=== PATIENT | female | born 1970 | race Caucasian/White ===

== ENCOUNTER 2017-11-18 16:08 | Emergency (ER) | payer BC ==
[~2017-11-18] VITALS: Ht 167.6 cm; Wt 102.1 kg
[~2017-11-18 16:08] MED LIST: OXCA300T4 PO
[2017-11-18 16:19] VITALS: BP_SYST 131
[2017-11-18] MEDS ORDERED: IBUPROFEN 800 MG TABLET PO ONE (17:00)
[2017-11-18 18:05] VITALS: BP_SYST 134
== END 2017-11-18 18:07 | disposition home or self-care (01) ==
LOC: SED 16:08
DX: S83.91XA Sprain of unspecified site of right knee, initial encounter (principal); W19.XXXA Unspecified fall, initial encounter; Y93.89 Activity, other specified; Y92.89 Other specified places as the place of occurrence of the external cause; Y99.8 Other external cause status; I10 Essential (primary) hypertension; Z90.710 Acquired absence of both cervix and uterus
CPT/HCPCS: 99284

== ENCOUNTER 2017-12-15 13:44 | Inpatient (IN) | payer BC ==
[~2017-12-15] VITALS: Ht 167.6 cm; Wt 99.8 kg
[~2017-12-15 13:44] MED LIST changes: +BUPIVACAINE /EPINEPHRINE/PF 0.25% 30 ML VIAL INJ ONE; +BUPIVACAINE LIPOSOME/PF 266 MG/20 ML VIAL INFIL ONE; +GLYCOPYRROLATE 0.2 MG/ML VIAL IJ ONE; +KETOROLAC TROMETHAMINE 30 MG VIAL IVP ONE; +LR 1,000 ML IV.SOLN IV ONE; +MIDAZOLAM HCL 5 MG/5 ML VIAL IVP ONE; +NEOSTIGMINE METHYLSULFATE 1 MG/ML, 10 ML VIAL IVP ONE; +NS 1000 ML IV.SOLN IV ONE; +NS IRRIG SOLN 1000 ML IR ONE; +ONDANSETRON HCL 4 MG/2 ML VIAL IVP ONE; +PROPOFOL 200MG/ 20ML VIAL (DIPRIVAN) IV ONE; +SEVOFLURANE 15 MIN GAS INH ONE
[2017-12-15 14:09] VITALS: BP_SYST 132
[2017-12-15] MEDS ORDERED: MORPHINE 4 MG/ML INJ. SYRINGE IVP ONE (14:45)
[2017-12-15] MEDS ORDERED: NACL 0.9% 1,000 ML IV ONE (14:45)
[2017-12-15 15:15] LABS: BILIRUBIN,URINE NEGATIVE (NEGATIVE); BLOOD, URINE NEGATIVE (NEGATIVE); CLARITY/URINE CLEAR (CLEAR); COLOR,URINE YELLOW (YELLOW); GLUCOSE,URINE NEGATIVE (NEGATIVE); KETONES,URINE NEGATIVE (NEGATIVE); LEUKOCYTE ESTERASE ,URINE NEGATIVE (NEGATIVE); NITRITE, URINE NEGATIVE (NEGATIVE); PH,URINE 5.5 (5.0-8.0); PROTEIN URINE NEGATIVE (NEGATIVE); UROBILINOGEN,URINE 0.2 (0.2-1.0)
[2017-12-15 15:40] LABS: BASOPHILS % (AUTO) 0.8 % (0.0-2.0); EOSINOPHILS # (AUTO) 0.1 K/uL (0.0-0.4); EOSINOPHILS % (AUTO) 2.5 % (0.0-4.0); HEMATOCRIT 38.2 % (36-48); HEMOGLOBIN 12.8 g/dL (12.0-16.0); LYMPHOCYTES # (AUTO) 1.7 K/uL (1.0-5.5); LYMPHOCYTES % (AUTO) 32.9 % (20.5-51.5); MEAN CORPUSCULAR HEMOGLOBIN 30 pg (27-31); MEAN CORPUSCULAR HGB CONC 34 % (32-36); MEAN CORPUSCULAR VOLUME 89 fL (79.0-98.0); MONOCYTES # (AUTO) 0.4 K/uL (0.0-1.0); MONOCYTES % (AUTO) 7.2 % (1.7-9.3); NEUTROPHILS # (AUTO) 2.9 K/uL (1.8-7.7); NEUTROPHILS % (AUTO) 56.6 % (40.0-70.0); PLATELET COUNT (AUTO) 254 K/uL (130-430); RED BLOOD CELL COUNT(AUTO) 4.32 MIL/uL (4.2-6.2); RED CELL DISTRIBUTION WIDTH 12.8 % (9.0-15.0); WHITE BLOOD COUNT (AUTO) 5.1 K/uL (4.8-10.8)
[2017-12-15 15:45] LABS: CALCIUM 9.8 mg/dL (8.4-11.0); CREATININE 0.93 mg/dL (0.55-1.30); POTASSIUM 4.3 mmol/L (3.5-5.1)
[2017-12-15 15:49] LABS: TOTAL BILIRUBIN 0.4 mg/dL (0.0-1.0)
[2017-12-15] MEDS ORDERED: LETR2.5T6 PO (17:14)
[2017-12-15] MEDS ORDERED: CEPH500C2 PO (17:14)
[2017-12-15] MEDS ORDERED: BACL20 PO (17:14)
[2017-12-15 17:48] VITALS: BP_SYST 134
[2017-12-15 19:30] VITALS: BP_SYST 114
[2017-12-15 20:00] VITALS: BP_SYST 114
[2017-12-15] MEDS: MORPHINE 4 MG/ML INJ. SYRINGE IVP PRN (21:38)
[2017-12-15] MEDS: ONDANSETRON HCL 4 MG/2 ML VIAL IVP PRN (21:44)
[2017-12-15] MEDS ORDERED: FAMOTIDINE PF 20 MG/2 ML VIAL IVP SCH (21:45)
[2017-12-15] MEDS ORDERED: ACETAMINOPHEN 325 MG TABLET PO PRN (21:45)
[2017-12-15] MEDS ORDERED: DIPHENHYDRAMINE INJ 50 MG/ML VIAL IVP PRN ×2 (21:45→22:00)
[2017-12-15] MEDS ORDERED: MAG-AL HYDROX/SIMETH 30 ML UDC PO PRN (22:15)
[2017-12-16 00:13] VITALS: BP_SYST 128
[2017-12-16] MEDS ORDERED: AMPICILLIN SODIUM/SULBACTAM NA 1.5 GM VIAL ONE (00:15)
[2017-12-16] MEDS: NACL 0.9% 1,000 ML IV SCH ×2 (00:33→18:15)
[2017-12-16] MEDS: AMPICILLIN SODIUM/SULBACTAM NA 1.5 GM in NS 50 ML IV SCH ×5 (00:37→23:28)
[2017-12-16] MEDS: TEMAZEPAM 15 MG CAPSULE PO PRN ×2 (00:42→23:29)
[2017-12-16] MEDS: KETOROLAC TROMETHAMINE 15 MG VIAL IVP PRN ×2 (05:49→11:19)
[2017-12-16] MEDS: ONDANSETRON HCL 4 MG/2 ML VIAL IVP PRN ×2 (05:52→20:28)
[2017-12-16 06:35] LABS: BASOPHILS % (AUTO) 0.7 % (0.0-2.0); EOSINOPHILS # (AUTO) 0.2 K/uL (0.0-0.4); EOSINOPHILS % (AUTO) 3.3 % (0.0-4.0); HEMATOCRIT 37.5 % (36-48); HEMOGLOBIN 12.6 g/dL (12.0-16.0); LYMPHOCYTES # (AUTO) 1.9 K/uL (1.0-5.5); LYMPHOCYTES % (AUTO) 41.9 % (20.5-51.5); MEAN CORPUSCULAR HEMOGLOBIN 30 pg (27-31); MEAN CORPUSCULAR HGB CONC 34 % (32-36); MEAN CORPUSCULAR VOLUME 89 fL (79.0-98.0); MONOCYTES # (AUTO) 0.3 K/uL (0.0-1.0); MONOCYTES % (AUTO) 7.3 % (1.7-9.3); NEUTROPHILS # (AUTO) 2.2 K/uL (1.8-7.7); NEUTROPHILS % (AUTO) 46.8 % (40.0-70.0); PLATELET COUNT (AUTO) 218 K/uL (130-430); RED CELL DISTRIBUTION WIDTH 12.7 % (9.0-15.0); WHITE BLOOD COUNT (AUTO) 4.6 K/uL (4.8-10.8)
[2017-12-16 06:51] LABS: PROTHROMBIN TIME 9.7 SECS (9.5-12.5)
[2017-12-16 07:02] LABS: ALBUMIN 3.4 g/dL (3.4-4.8); CALCIUM 9.3 mg/dL (8.4-11.0); CREATININE 0.99 mg/dL (0.55-1.30); POTASSIUM 4.1 mmol/L (3.5-5.1); THYROID STIMULATING HORMONE 2.54 uIu/mL (0.34-4.82); TOTAL BILIRUBIN 0.5 mg/dL (0.0-1.0)
[2017-12-16 08:06] VITALS: BP_SYST 105
[2017-12-16] MEDS: FAMOTIDINE PF 20 MG/2 ML VIAL IVP SCH ×2 (08:32→20:28)
[2017-12-16] MEDS: CLOTRIMAZOLE/BETAMET DIPROP 15 GM TUBE TP SCH ×2 (08:32→20:28)
[2017-12-16] MEDS: LETROZOLE 2.5 MG TABLET (FEMARA) PO SCH (09:00)
[2017-12-16 12:30] VITALS: BP_SYST 112
[2017-12-16 15:23] VITALS: BP_SYST 107
[2017-12-16 19:20] VITALS: BP_SYST 107
[2017-12-16] MEDS: MORPHINE 4 MG/ML INJ. SYRINGE IVP PRN (20:29)
[2017-12-17 00:28] VITALS: BP_SYST 100
[2017-12-17] MEDS: MORPHINE 4 MG/ML INJ. SYRINGE IVP PRN (04:13)
[2017-12-17] MEDS: AMPICILLIN SODIUM/SULBACTAM NA 1.5 GM in NS 50 ML IV SCH ×4 (05:48→23:29)
[2017-12-17 06:53] LABS: ALANINE AMINOTRANSFERASE 256 U/L (12-78); ALBUMIN 3.5 g/dL (3.4-4.8); ASPARTATE AMINOTRANSFERASE 60 U/L (10-37); CALCIUM 9.5 mg/dL (8.4-11.0); CHLORIDE 107 mmol/L (98-107); GLUCOSE 89 mg/dL (70-99); POTASSIUM 4.5 mmol/L (3.5-5.1); SODIUM SERUM 139 mmol/L (136-145); TOTAL BILIRUBIN 0.5 mg/dL (0.0-1.0); UREA NITROGEN, BLOOD 10 mg/dL (8-21)
[2017-12-17 07:01] LABS: BASOPHILS % (AUTO) 0.2 % (0.0-2.0); EOSINOPHILS # (AUTO) 0.2 K/uL (0.0-0.4); EOSINOPHILS % (AUTO) 3.7 % (0.0-4.0); HEMATOCRIT 36.7 % (36-48); HEMOGLOBIN 12.4 g/dL (12.0-16.0); LYMPHOCYTES # (AUTO) 1.5 K/uL (1.0-5.5); LYMPHOCYTES % (AUTO) 34.6 % (20.5-51.5); MEAN CORPUSCULAR HEMOGLOBIN 31 pg (27-31); MEAN CORPUSCULAR HGB CONC 34 % (32-36); MEAN CORPUSCULAR VOLUME 91 fL (79.0-98.0); MONOCYTES # (AUTO) 0.3 K/uL (0.0-1.0); MONOCYTES % (AUTO) 7.6 % (1.7-9.3); NEUTROPHILS # (AUTO) 2.3 K/uL (1.8-7.7); NEUTROPHILS % (AUTO) 53.9 % (40.0-70.0); PLATELET COUNT (AUTO) 218 K/uL (130-430); RED BLOOD CELL COUNT(AUTO) 4.04 MIL/uL (4.2-6.2); WHITE BLOOD COUNT (AUTO) 4.3 K/uL (4.8-10.8)
[2017-12-17 07:06] LABS: ANION GAP < 3 (5-15); GFR AFRICAN AMERICAN 100 mL/min (>90)
[2017-12-17] MEDS: KETOROLAC TROMETHAMINE 15 MG VIAL IVP PRN (07:57)
[2017-12-17 08:00] VITALS: BP_SYST 125
[2017-12-17] MEDS: LETROZOLE 2.5 MG TABLET (FEMARA) PO SCH (08:46)
[2017-12-17] MEDS: CLOTRIMAZOLE/BETAMET DIPROP 15 GM TUBE TP SCH ×2 (08:46→20:28)
[2017-12-17] MEDS: FAMOTIDINE PF 20 MG/2 ML VIAL IVP SCH ×2 (08:46→20:28)
[2017-12-17] MEDS ORDERED: BUPIVACAINE LIPOSOME/PF 266 MG/20 ML VIAL INFIL ONE (09:38)
[2017-12-17] MEDS ORDERED: IOHEXOL 100 ML IV ONE (09:58)
[2017-12-17] MEDS ORDERED: fentaNYL CITRATE/PF 100 MCG/2 ML AMP IVP PRN ×2 (10:15)
[2017-12-17] MEDS ORDERED: ONDANSETRON HCL 4 MG/2 ML VIAL IVP PRN (10:15)
[2017-12-17] MEDS ORDERED: KETOROLAC TROMETHAMINE 30 MG VIAL IVP PRN (10:15)
[2017-12-17] MEDS ORDERED: HYDROmorphone 1 MG INJ. 1 MG/ML AMPUL IVP PRN (11:00)
[2017-12-17] MEDS ORDERED: ACETAMINOPHEN 325 MG TABLET PO PRN (11:00)
[2017-12-17 11:06] LABS: HEPATITIS A AB, IgM Negative (Negative); HEPATITIS B CORE AB, IgM Negative (Negative); HEPATITIS B SURFACE AG Negative (Negative)
[2017-12-17] MEDS ORDERED: fentaNYL CITRATE/PF 100 MCG/2 ML AMP ONE (11:33)
[2017-12-17] MEDS: NACL 0.9% 1,000 ML IV SCH ×2 (12:10→20:28)
[2017-12-17 12:45] VITALS: BP_SYST 119
[2017-12-17 13:00] VITALS: BP_SYST 147
[2017-12-17] MEDS: HYDROmorphone 1 MG INJ. 1 MG/ML AMPUL IVP PRN (13:13)
[2017-12-17] MEDS: ONDANSETRON HCL 4 MG/2 ML VIAL IVP PRN ×2 (13:42→20:28)
[2017-12-17] MEDS: METOCLOPRAMIDE HCL 10 MG/2 ML VIAL IVP PRN ×2 (16:07→16:10)
[2017-12-17 16:45] VITALS: BP_SYST 119
[2017-12-17] MEDS: HYDROcodone/ACETAMIN 5-325 MG TAB (NORCO/ VICODIN) PO PRN (20:29)
[2017-12-17 20:47] VITALS: BP_SYST 135
[2017-12-18 00:13] VITALS: BP_SYST 124
[2017-12-18] MEDS: HYDROcodone/ACETAMIN 5-325 MG TAB (NORCO/ VICODIN) PO PRN ×3 (02:56→23:57)
[2017-12-18] MEDS: HYDROmorphone 1 MG INJ. 1 MG/ML AMPUL IVP PRN ×4 (05:06→19:41)
[2017-12-18] MEDS: AMPICILLIN SODIUM/SULBACTAM NA 1.5 GM in NS 50 ML IV SCH ×4 (05:06→23:58)
[2017-12-18 06:47] LABS: BASOPHILS % (AUTO) 0.5 % (0.0-2.0); EOSINOPHILS # (AUTO) 0.2 K/uL (0.0-0.4); EOSINOPHILS % (AUTO) 2.9 % (0.0-4.0); HEMATOCRIT 34.8 % (36-48); HEMOGLOBIN 11.4 g/dL (12.0-16.0); LYMPHOCYTES # (AUTO) 1.5 K/uL (1.0-5.5); LYMPHOCYTES % (AUTO) 26.6 % (20.5-51.5); MEAN CORPUSCULAR HEMOGLOBIN 30 pg (27-31); MEAN CORPUSCULAR HGB CONC 33 % (32-36); MEAN CORPUSCULAR VOLUME 91 fL (79.0-98.0); MONOCYTES # (AUTO) 0.4 K/uL (0.0-1.0); MONOCYTES % (AUTO) 7.7 % (1.7-9.3); NEUTROPHILS # (AUTO) 3.4 K/uL (1.8-7.7); NEUTROPHILS % (AUTO) 62.3 % (40.0-70.0); PLATELET COUNT (AUTO) 203 K/uL (130-430); RED BLOOD CELL COUNT(AUTO) 3.84 MIL/uL (4.2-6.2); RED CELL DISTRIBUTION WIDTH 11.9 % (9.0-15.0); WHITE BLOOD COUNT (AUTO) 5.5 K/uL (4.8-10.8)
[2017-12-18] MEDS: NACL 0.9% 1,000 ML IV SCH (06:52)
[2017-12-18 06:57] LABS: ALBUMIN 3.1 g/dL (3.4-4.8); CALCIUM 8.8 mg/dL (8.4-11.0); CREATININE 0.64 mg/dL (0.55-1.30); POTASSIUM 3.7 mmol/L (3.5-5.1); TOTAL BILIRUBIN 0.6 mg/dL (0.0-1.0)
[2017-12-18 08:01] VITALS: BP_SYST 138
[2017-12-18] MEDS: LETROZOLE 2.5 MG TABLET (FEMARA) PO SCH (08:45)
[2017-12-18] MEDS: CLOTRIMAZOLE/BETAMET DIPROP 15 GM TUBE TP SCH ×2 (08:46→20:47)
[2017-12-18] MEDS: FAMOTIDINE PF 20 MG/2 ML VIAL IVP SCH ×2 (08:46→20:47)
[2017-12-18 12:39] VITALS: BP_SYST 108
[2017-12-18 15:04] VITALS: BP_SYST 143
[2017-12-18] MEDS ORDERED: POLYETHYLENE GLYCOL 3350, 17 GM/ POWD.PACK PO ONE (17:00)
[2017-12-18] MEDS ORDERED: BISACODYL 5 MG TABLET.DR (DULCOLAX) PO ONE ×2 (18:15)
[2017-12-18 20:20] VITALS: BP_SYST 148
[2017-12-18] MEDS: DOCUSATE SODIUM 100 MG CAPSULE PO SCH (20:53)
[2017-12-18] MEDS: ONDANSETRON HCL 4 MG/2 ML VIAL IVP PRN (22:28)
[2017-12-19 01:00] VITALS: BP_SYST 127
[2017-12-19] MEDS: AMPICILLIN SODIUM/SULBACTAM NA 1.5 GM in NS 50 ML IV SCH ×2 (05:45→12:14)
[2017-12-19] MEDS: HYDROcodone/ACETAMIN 5-325 MG TAB (NORCO/ VICODIN) PO PRN (05:49)
[2017-12-19 08:00] VITALS: BP_SYST 124
[2017-12-19] MEDS: FAMOTIDINE PF 20 MG/2 ML VIAL IVP SCH (08:21)
[2017-12-19] MEDS: DOCUSATE SODIUM 100 MG CAPSULE PO SCH (08:21)
[2017-12-19] MEDS: LETROZOLE 2.5 MG TABLET (FEMARA) PO SCH (08:21)
[2017-12-19] MEDS: CLOTRIMAZOLE/BETAMET DIPROP 15 GM TUBE TP SCH (08:22)
[2017-12-19 08:23] LABS: BASOPHILS # (AUTO) 0.1 K/uL (0.0-0.2); EOSINOPHILS # (AUTO) 0.2 K/uL (0.0-0.4); EOSINOPHILS % (AUTO) 4.1 % (0.0-4.0); HEMATOCRIT 35.7 % (36-48); HEMOGLOBIN 11.8 g/dL (12.0-16.0); LYMPHOCYTES # (AUTO) 1.7 K/uL (1.0-5.5); LYMPHOCYTES % (AUTO) 33.4 % (20.5-51.5); MEAN CORPUSCULAR HEMOGLOBIN 30 pg (27-31); MEAN CORPUSCULAR HGB CONC 33 % (32-36); MEAN CORPUSCULAR VOLUME 91 fL (79.0-98.0); MONOCYTES # (AUTO) 0.4 K/uL (0.0-1.0); MONOCYTES % (AUTO) 7.4 % (1.7-9.3); NEUTROPHILS # (AUTO) 2.8 K/uL (1.8-7.7); NEUTROPHILS % (AUTO) 54.1 % (40.0-70.0); PLATELET COUNT (AUTO) 187 K/uL (130-430); RED BLOOD CELL COUNT(AUTO) 3.94 MIL/uL (4.2-6.2); RED CELL DISTRIBUTION WIDTH 11.8 % (9.0-15.0); WHITE BLOOD COUNT (AUTO) 5.2 K/uL (4.8-10.8)
[2017-12-19 08:33] LABS: ALBUMIN 3.4 g/dL (3.4-4.8); CALCIUM 9.4 mg/dL (8.4-11.0); CREATININE 0.77 mg/dL (0.55-1.30); POTASSIUM 3.7 mmol/L (3.5-5.1); TOTAL BILIRUBIN 0.5 mg/dL (0.0-1.0)
[2017-12-19 11:43] VITALS: BP_SYST 149
[2017-12-19 12:00] VITALS: BP_SYST 121
[2017-12-19] MEDS ORDERED: MAGNESIUM CITRATE 300 ML ORAL SOLUTION PO ONE (12:45)
== END 2017-12-19 14:45 | disposition home or self-care (01) | DRG 419 ==
LOC: SED 13:44 → SMU 17:17
PROVIDERS: ADMIT Internal Medicine; ATTEND Internal Medicine
PROC: BF131ZZ Fluoroscopy of Gallbladder and Bile Ducts using Low Osmolar Contrast (ICD-10-PCS; 2017-12-17)
PROC: 0FT44ZZ Resection of Gallbladder, Percutaneous Endoscopic Approach (ICD-10-PCS; principal; 2017-12-17 09:00)
DX: K80.42 Calculus of bile duct with acute cholecystitis without obstruction (principal); I10 Essential (primary) hypertension; E66.9 Obesity, unspecified; Z68.35 Body mass index [BMI] 35.0-35.9, adult; Z85.3 Personal history of malignant neoplasm of breast; Z79.899 Other long term (current) drug therapy; Z90.710 Acquired absence of both cervix and uterus
CPT/HCPCS: 36415; 71046-TC; 74300; 76700-TC; 78226; 80053; 80074; 81003; 82150-TC; 83690-TC; 84443-TC; 84703; 85025; 85610-TC; 85730-TC; 86870; 86886; 86900; 86901; 87081; 88304; 93005; 94010; 96361; 96374; 99285; A9537; C1727; C9290; J0295; J1170; J1200; J1885; J2250; J2270; J2405; J2704; J2710; J2765; J3010; J3490; J7030; J7120; Q9967

== ENCOUNTER 2019-12-10 10:21 | Day surgery (SDC) | payer BC, SELFPAY ==
[2019-12-03 11:15] LABS: BASOPHILS # (AUTO) 0.1 K/uL (0.0-0.2); BASOPHILS % (AUTO) 1.3 % (0.0-2.0); EOSINOPHILS # (AUTO) 0.1 K/uL (0.0-0.4); EOSINOPHILS % (AUTO) 2.8 % (0.0-4.0); HEMATOCRIT 36.1 % (36-48); HEMOGLOBIN 12.1 g/dL (12.0-16.0); LYMPHOCYTES # (AUTO) 1.6 K/uL (1.0-5.5); LYMPHOCYTES % (AUTO) 35.7 % (20.5-51.5); MEAN CORPUSCULAR HEMOGLOBIN 30 pg (27-31); MEAN CORPUSCULAR HGB CONC 34 % (32-36); MEAN CORPUSCULAR VOLUME 89 fL (79.0-98.0); MONOCYTES # (AUTO) 0.3 K/uL (0.0-1.0); MONOCYTES % (AUTO) 7.1 % (1.7-9.3); NEUTROPHILS # (AUTO) 2.4 K/uL (1.8-7.7); NEUTROPHILS % (AUTO) 53.1 % (40.0-70.0); PLATELET COUNT (AUTO) 256 K/uL (130-430); RED BLOOD CELL COUNT(AUTO) 4.06 MIL/uL (4.2-6.2); RED CELL DISTRIBUTION WIDTH 12.8 % (9.0-15.0); WHITE BLOOD COUNT (AUTO) 4.4 K/uL (4.8-10.8)
[2019-12-03 11:25] LABS: BILIRUBIN,URINE NEGATIVE (NEGATIVE); BLOOD, URINE NEGATIVE (NEGATIVE); CLARITY/URINE CLEAR (CLEAR); COLOR,URINE YELLOW (YELLOW); GLUCOSE,URINE NEGATIVE (NEGATIVE); KETONES,URINE NEGATIVE (NEGATIVE); LEUKOCYTE ESTERASE ,URINE NEGATIVE (NEGATIVE); NITRITE, URINE NEGATIVE (NEGATIVE); PROTEIN URINE NEGATIVE (NEGATIVE); UROBILINOGEN,URINE 0.2 (0.2-1.0)
[2019-12-03 11:27] LABS: HCG,QUAL RESULT NEGATIVE (NEGATIVE)
[2019-12-03 11:40] LABS: PROTHROMBIN TIME 9.7 SECS (9.5-12.5)
[2019-12-03 11:45] LABS: CALCIUM 9.5 mg/dL (8.4-11.0); CREATININE 0.67 mg/dL (0.55-1.30); POTASSIUM 4.3 mmol/L (3.5-5.1)
[~2019-12-10] VITALS: Ht 167.6 cm; Wt 102.1 kg
[~2019-12-10 10:21] MED LIST changes: +BACL20 PO; -BUPIVACAINE /EPINEPHRINE/PF 0.25% 30 ML VIAL INJ ONE; -BUPIVACAINE LIPOSOME/PF 266 MG/20 ML VIAL INFIL ONE; +CEPH500C2 PO; -GLYCOPYRROLATE 0.2 MG/ML VIAL IJ ONE; -KETOROLAC TROMETHAMINE 30 MG VIAL IVP ONE; +LETR2.5T6 PO; -LR 1,000 ML IV.SOLN IV ONE; -MIDAZOLAM HCL 5 MG/5 ML VIAL IVP ONE; -NEOSTIGMINE METHYLSULFATE 1 MG/ML, 10 ML VIAL IVP ONE; -NS 1000 ML IV.SOLN IV ONE; -NS IRRIG SOLN 1000 ML IR ONE; -ONDANSETRON HCL 4 MG/2 ML VIAL IVP ONE; -OXCA300T4 PO; -PROPOFOL 200MG/ 20ML VIAL (DIPRIVAN) IV ONE; -SEVOFLURANE 15 MIN GAS INH ONE
[2019-12-10] MEDS ORDERED: BUPIVACAINE /EPINEPHRINE/PF 0.25% 30 ML VIAL INJ ONE (11:51)
[2019-12-10] MEDS ORDERED: PROPOFOL 200MG/ 20ML VIAL (DIPRIVAN) IV ONE (11:51)
[2019-12-10] MEDS ORDERED: ROCURONIUM BROMIDE 10 MG/ML (ZEMURON) IV ONE (11:51)
[2019-12-10] MEDS ORDERED: DEXAMETHASONE SOD PHOSPHATE 4 MG/ML VIAL IVP ONE (11:51)
[2019-12-10] MEDS ORDERED: SUCCINYLCHOLINE CHLORIDE 20 MG/ML(QUELICIN) IVP ONE (11:51)
[2019-12-10] MEDS ORDERED: NS IRRIG SOLN 5000 ML IR ONE (11:51)
[2019-12-10] MEDS ORDERED: NEOSTIGMINE METHYLSULFATE 1 MG/ML, 10 ML VIAL IVP ONE (11:51)
[2019-12-10] MEDS ORDERED: GLYCOPYRROLATE 0.2 MG/ML VIAL IJ ONE (11:51)
[2019-12-10] MEDS ORDERED: NS IRRIG SOLN 1000 ML IR ONE (11:51)
[2019-12-10] MEDS ORDERED: METOCLOPRAMIDE HCL 10 MG/2 ML VIAL IVP ONE (11:51)
[2019-12-10] MEDS ORDERED: SEVOFLURANE 15 MIN GAS INH ONE (11:51)
[2019-12-10] MEDS ORDERED: LR 1,000 ML IV SCH (12:31)
[2019-12-10] MEDS ORDERED: MORPHINE 4 MG/ML INJ. SYRINGE IVP PRN (12:45)
[2019-12-10] MEDS ORDERED: METOCLOPRAMIDE HCL 10 MG/2 ML VIAL IVP PRN (12:45)
[2019-12-10] MEDS ORDERED: HYDROmorphone 1 MG INJ. 1 MG/ML AMPUL IVP PRN (12:45)
[2019-12-10] MEDS ORDERED: ONDANSETRON HCL 4 MG/2 ML VIAL IVP PRN (12:45)
[2019-12-10] MEDS ORDERED: KETOROLAC TROMETHAMINE 30 MG VIAL IVP PRN (12:45)
[2019-12-10] MEDS ORDERED: MEPERIDINE HCL/PF 25 MG/ML DISP.SYRIN IVP PRN (12:45)
[2019-12-10] MEDS ORDERED: HYDROmorphone 1 MG INJ. 1 MG/ML AMPUL ONE (13:23)
[2019-12-10] MEDS ORDERED: HYDROcodone/ACETAMIN 10-325 MG TAB PO PRN (14:15)
[2019-12-10 14:22] VITALS: BP_SYST 142
[2019-12-10] MEDS ORDERED: HYDROcodone/ACETAMIN 10-325 MG TAB ONE (14:32)
== END 2019-12-10 15:10 | disposition home or self-care (01) ==
LOC: SDS 10:21 → SMU 10:22 → SDS 15:10
PROVIDERS: ATTEND Orthopaedic Surgery
DX: M22.42 Chondromalacia patellae, left knee (principal); Z90.710 Acquired absence of both cervix and uterus; Z98.890 Other specified postprocedural states; Z79.899 Other long term (current) drug therapy; Z20.828 Contact with and (suspected) exposure to other viral communicable diseases; Z79.01 Long term (current) use of anticoagulants
CPT/HCPCS: 29877; 36415; 71046; 80048; 81003; 84703; 85025; 85610; 85730; J0330; J1100; J1170; J2704; J2710; J2765; J3490 ×2; J7120; U0003

== ENCOUNTER 2020-01-12 20:39 | Emergency (ER) | payer BC, SELFPAY ==
[~2020-01-12] VITALS: Ht 167.6 cm; Wt 102.1 kg
[2020-01-12 20:45] VITALS: BP_SYST 152
[2020-01-13 00:40] VITALS: BP_SYST 152
== END 2020-01-13 00:40 | disposition home or self-care (01) ==
LOC: SED 20:39
DX: N64.4 Mastodynia (principal); I10 Essential (primary) hypertension; Z79.899 Other long term (current) drug therapy; Z85.3 Personal history of malignant neoplasm of breast
CPT/HCPCS: 76641; 99284

== ENCOUNTER 2021-01-29 16:16 | Emergency (ER) | payer BC, SELFPAY ==
[~2021-01-29] VITALS: Ht 167.6 cm; Wt 104.3 kg
[~2021-01-29 16:16] MED LIST changes: +CEPH-548 PO; -CEPH500C2 PO
[2021-01-29 16:26] VITALS: BP_SYST 144
--- NOTE | 2021-01-29 16:37 | NUR ---
Patient to ER bed H1 to gown for evaluation. Side rails up.
--- NOTE | 2021-01-29 16:40 | NUR ---
PT CAME IN FROM HOME C/O WORSENING LEFT SIDED SCIATICA AND LOWER BACK PAIN RADIATING TO LEFT THIGH RX LYRICA, CELEBREX, NORCO AND FLEXERIL NOT PROVIDING RELIEF. PT REPORT HX OF BULGING DISKS L1-L4, L5-S1, AND SCIATICA PAIN. SEES PAIN MANAGEMENT AT [facility]. NO RECENT INJURY OR TRAUMA. PT IS AMBULATORY, AAOX4, V/S STABLE
--- NOTE | 2021-01-29 17:18 | NUR ---
ER at bedside examining patient.
[2021-01-29] MEDS ORDERED: MORPHINE SULFATE 15 MG TABLET.ER PO ONE (17:30)
--- NOTE | 2021-01-29 18:00 | NUR ---
Pt laying down in gurney crying. Vital signs holding. Breathing is even and unlabored.
[2021-01-29] MEDS ORDERED: KETOROLAC TROMETHAMINE 30 MG VIAL IM ONE (19:00)
--- NOTE | 2021-01-29 19:07 | NUR ---
Pt laying in gurney vital signs holding. Breathing is even and unlabored.
--- NOTE | 2021-01-29 19:17 | NUR ---
Care endorsed to Yary CAMEJO.
[2021-01-29 19:30] VITALS: BP_SYST 144
--- NOTE | 2021-01-29 19:31 | NUR ---
Patient given written and verbal discharge instructions and verbalizes understanding. DR. NORI LAST MD discussed with patient the results and treatment provided. Patient in stable condition. ID arm band removed. Patient educated on pain management and to follow up with PMD. Pain Scale 0/10. Opportunity for questions provided and answered. Medication side effect fact sheet provided.
== END 2021-01-29 19:31 | disposition home or self-care (01) ==
LOC: SED 16:16
DX: G89.29 Other chronic pain (principal); M54.50 Low back pain, unspecified; I10 Essential (primary) hypertension; Z79.899 Other long term (current) drug therapy
CPT/HCPCS: 96372; 99283; J1885

== ENCOUNTER 2021-07-31 08:18 | Emergency (ER) | payer BC ==
[~2021-07-31] VITALS: Ht 167.6 cm; Wt 105.7 kg
[2021-07-31 08:20] VITALS: BP_SYST 163
--- NOTE | 2021-07-31 08:35 | NUR ---
Placed in room 4 . 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 To gown for exam. Side rails up. Report given to NELL WILLIAMSON.
--- NOTE | 2021-07-31 08:45 | NUR ---
Received patient at bedside rm 04, alert, awake and oriented. Pt presents stable vital signs.
--- NOTE | 2021-07-31 09:00 | NUR ---
Dr Gonzalez at bedside to assess.
[2021-07-31] MEDS: ONDANSETRON 4 MG ODT TAB PO ONE (10:11)
[2021-07-31] MEDS ORDERED: CYCL10TA24 PO (11:27)
--- NOTE | 2021-07-31 11:30 | NUR ---
Discharge instruction provided. Pt verbalized understanding. Denies any discomfort at this time.
[2021-07-31] MEDS ORDERED: ONDA-8 TL (11:52)
[2021-07-31 11:55] VITALS: BP_SYST 138
== END 2021-07-31 11:30 | disposition home or self-care (01) ==
LOC: SED 08:18
DX: S16.1XXA Strain of muscle, fascia and tendon at neck level, initial encounter (principal); F07.81 Postconcussional syndrome; I10 Essential (primary) hypertension; Z79.899 Other long term (current) drug therapy; W01.198A Fall on same level from slipping, tripping and stumbling with subsequent striking against other object, initial encounter; Y93.89 Activity, other specified; Y92.89 Other specified places as the place of occurrence of the external cause; Y99.8 Other external cause status
CPT/HCPCS: 70450; 76376; 99284; Q0162

== ENCOUNTER 2023-09-29 14:51 | Emergency (ER) | payer BC ==
[~2023-09-29] VITALS: Ht 162.6 cm; Wt 81.6 kg
[~2023-09-29 14:51] MED LIST changes: +CYCL10TA24 PO; +ONDA-8 TL
[2023-09-29 14:52] VITALS: BP_SYST 159; PULSE 69; RESP 18; TEMP 98.3; O2SAT 98
[2023-09-29 15:41] LABS: BILIRUBIN,URINE NEGATIVE (NEGATIVE); BLOOD, URINE NEGATIVE (NEGATIVE); CLARITY/URINE CLEAR (CLEAR); COLOR,URINE YELLOW (YELLOW); GLUCOSE,URINE NEGATIVE (NEGATIVE); KETONES,URINE NEGATIVE (NEGATIVE); LEUKOCYTE ESTERASE ,URINE NEGATIVE (NEGATIVE); NITRITE, URINE NEGATIVE (NEGATIVE); PROTEIN URINE NEGATIVE (NEGATIVE); UROBILINOGEN,URINE 0.2 (0.2-1.0)
[2023-09-29 16:11] LABS: BASOPHILS % (AUTO) 0.8 % (0.0-2.0); EOSINOPHILS # (AUTO) 0.1 K/uL (0.0-0.4); EOSINOPHILS % (AUTO) 1.5 % (0.0-4.0); HEMATOCRIT 39.1 % (36-48); HEMOGLOBIN 13.3 g/dL (12.0-16.0); LYMPHOCYTES # (AUTO) 1.3 K/uL (1.0-5.5); LYMPHOCYTES % (AUTO) 27.5 % (20.5-51.5); MEAN CORPUSCULAR HEMOGLOBIN 29 pg (27-31); MEAN CORPUSCULAR HGB CONC 34 % (32-36); MEAN CORPUSCULAR VOLUME 87 fL (79.0-98.0); MONOCYTES # (AUTO) 0.4 K/uL (0.0-1.0); MONOCYTES % (AUTO) 8.8 % (1.7-9.3); NEUTROPHILS # (AUTO) 2.9 K/uL (1.8-7.7); NEUTROPHILS % (AUTO) 61.4 % (40.0-70.0); PLATELET COUNT (AUTO) 272 K/uL (130-430); RED BLOOD CELL COUNT(AUTO) 4.51 MIL/uL (4.2-6.2); RED CELL DISTRIBUTION WIDTH 13.5 % (9.0-15.0); WHITE BLOOD COUNT (AUTO) 4.6 K/uL (4.8-10.8)
[2023-09-29 16:23] LABS: ALBUMIN 3.9 g/dL (3.4-4.8); BILIRUBIN,DIRECT 0.1 mg/dL (0.0-0.3); CALCIUM 10.4 mg/dL (8.4-11.0); CREATININE 0.85 mg/dL (0.55-1.30); TOTAL BILIRUBIN 0.5 mg/dL (0.0-1.0); TOTAL PROTEIN, SERUM 7.1 g/dL (6.4-8.3)
[2023-09-29] MEDS ORDERED: ONDA-8 TL (17:43)
[2023-09-29 18:06] VITALS: BP_SYST 159; PULSE 67; RESP 18; TEMP 98.3; O2SAT 99
== END 2023-09-29 18:05 | disposition home or self-care (01) ==
LOC: SED 14:51
DX: R11.2 Nausea with vomiting, unspecified (principal); R53.1 Weakness; R19.7 Diarrhea, unspecified; E11.9 Type 2 diabetes mellitus without complications; I10 Essential (primary) hypertension; G89.29 Other chronic pain; Z85.3 Personal history of malignant neoplasm of breast; Z90.710 Acquired absence of both cervix and uterus; Z79.899 Other long term (current) drug therapy; Z79.2 Long term (current) use of antibiotics
CPT/HCPCS: 36415; 80048; 80076; 81001; 81003; 82948; 83690; 85025; 99283

== ENCOUNTER 2023-11-06 01:54 | Emergency (ER) | payer BC ==
[~2023-11-06] VITALS: Ht 167.6 cm; Wt 90.3 kg
[2023-11-06 02:05] VITALS: BP_SYST 103; PULSE 73; RESP 16; TEMP 98.5; O2SAT 98
[2023-11-06] MEDS: DIPHTH,PERTUSS(ACELL),TET VAC 0.5 ML VIAL (Tdap) I.M. ONE (03:17)
[2023-11-06] MEDS: cefTRIAXone 1 GM IVPB PREMIX 50 ML IV ONE (03:17)
[2023-11-06] MEDS: NORMAL SALINE 5 ML DISP.SYRIN IVF SCH (03:17)
[2023-11-06] MEDS ORDERED: CEPH250C PO (03:20)
[2023-11-06 03:29] LABS: BASOPHILS # (AUTO) 0.1 K/uL (0.0-0.2); BASOPHILS % (AUTO) 1.2 % (0.0-2.0); EOSINOPHILS # (AUTO) 0.1 K/uL (0.0-0.4); EOSINOPHILS % (AUTO) 2.7 % (0.0-4.0); HEMATOCRIT 30.6 % (36-48); HEMOGLOBIN 10.2 g/dL (12.0-16.0); LYMPHOCYTES # (AUTO) 1.5 K/uL (1.0-5.5); LYMPHOCYTES % (AUTO) 27.7 % (20.5-51.5); MEAN CORPUSCULAR HEMOGLOBIN 29 pg (27-31); MEAN CORPUSCULAR HGB CONC 33 % (32-36); MEAN CORPUSCULAR VOLUME 88 fL (79.0-98.0); MONOCYTES # (AUTO) 0.5 K/uL (0.0-1.0); MONOCYTES % (AUTO) 9.1 % (1.7-9.3); NEUTROPHILS # (AUTO) 3.3 K/uL (1.8-7.7); NEUTROPHILS % (AUTO) 59.3 % (40.0-70.0); PLATELET COUNT (AUTO) 393 K/uL (130-430); RED BLOOD CELL COUNT(AUTO) 3.49 MIL/uL (4.2-6.2); RED CELL DISTRIBUTION WIDTH 13.4 % (9.0-15.0); WHITE BLOOD COUNT (AUTO) 5.5 K/uL (4.8-10.8)
[2023-11-06 03:43] LABS: CALCIUM 8.9 mg/dL (8.4-11.0); CREATININE 0.79 mg/dL (0.55-1.30); POTASSIUM 3.9 mmol/L (3.5-5.1)
[2023-11-06 04:06] VITALS: BP_SYST 103; PULSE 73; RESP 16; TEMP 98.5; O2SAT 98
== END 2023-11-06 04:06 | disposition home or self-care (01) ==
LOC: SED 01:54
DX: L03.317 Cellulitis of buttock (principal); Z23 Encounter for immunization; I10 Essential (primary) hypertension; G89.29 Other chronic pain; Z85.3 Personal history of malignant neoplasm of breast; Z90.710 Acquired absence of both cervix and uterus; Z90.49 Acquired absence of other specified parts of digestive tract; Z98.890 Other specified postprocedural states; Z79.899 Other long term (current) drug therapy; Z79.2 Long term (current) use of antibiotics
CPT/HCPCS: 99284; 96365; 80048; 85025; 36415; 90715; 90471; J0696